=== PATIENT | female | born 1980 | race Caucasian/White ===

== ENCOUNTER 2018-05-31 14:51 | Outpatient (CLI) | payer OTHER ==
[2018-05-31] MEDS ORDERED: PRENATAL FORMU1 EAC1 PO (23:04)
[2018-06-01] MEDS ORDERED: PROTONIX40 MG PO (06:33)
== END 2018-06-01 08:29 | disposition home or self-care (01) ==
LOC: EDBD 14:51 → OBS/DEL 14:51
DX: O26.892 Other specified pregnancy related conditions, second trimester (principal); K29.70 Gastritis, unspecified, without bleeding; O60.02 Preterm labor without delivery, second trimester; Z34.02 Encounter for supervision of normal first pregnancy, second trimester